=== PATIENT | male | born 1940 | race Caucasian/White ===

== ENCOUNTER → 2017-02-18 | Outpatient (CLI) | payer MEDICARE, MEDICAID ==
[~2017-02-18] MED LIST: APIX5TAB PO; ASPI-556 PO; ATOR40TA28 PO; BUDE10.2 IH; COMBISP IH; FERR-89 PO; HYDR-2924 PO; INSU100C14 SQ; INSU100V SQ; IPRNEB IH; ISOS30TA6 PO; LAMO100 PO; LEVE500T53 PO; LEVO25TA9 PO; METO50 PO; NIFE60TA71 PO; OXYC40TA57 PO; PANT40TA25 PO; TIOT185 IH
[2017-02-18 13:58] VITALS: BP 118/47
== END | disposition home or self-care (01) ==
LOC: SRCNTR 13:35
PROVIDERS: ATTEND Internal Medicine
DX: J44.9 Chronic obstructive pulmonary disease, unspecified (principal); I11.0 Hypertensive heart disease with heart failure; I50.9 Heart failure, unspecified; E11.9 Type 2 diabetes mellitus without complications; J84.10 Pulmonary fibrosis, unspecified; Z51.5 Encounter for palliative care; Z79.01 Long term (current) use of anticoagulants; Z79.4 Long term (current) use of insulin; Z79.82 Long term (current) use of aspirin; Z99.81 Dependence on supplemental oxygen
CPT/HCPCS: G0463